=== PATIENT | male | born 1965 | race Caucasian/White ===

== ENCOUNTER 2022-12-25 09:52 | Emergency (ER) | payer SELFPAY ==
[~2022-12-25] VITALS: Ht 172.7 cm; Wt 64.0 kg
[2022-12-25 10:04] VITALS: BP 120/89; PULSE 98; RESP 16; TEMP 98.3; O2SAT 98
[2022-12-25] MEDS ORDERED: ACETAMINOPHEN 325MG TABLET PO ONE (12:30)
== END 2022-12-25 12:22 ==
LOC: ER 10:01
DX: S52.601A Unspecified fracture of lower end of right ulna, initial encounter for closed fracture (principal); E78.00 Pure hypercholesterolemia, unspecified; X58.XXXA Exposure to other specified factors, initial encounter; Y93.89 Activity, other specified; Y92.89 Other specified places as the place of occurrence of the external cause; Y99.8 Other external cause status
CPT/HCPCS: 29125; 73100; 73120; 99284